=== PATIENT | female | born 1965 | race African-American/Black ===

== ENCOUNTER 2022-08-08 14:16 | Emergency (ER) | payer MEDICAID ==
[~2022-08-08] VITALS: Ht 162.6 cm; Wt 64.0 kg
[~2022-08-08 14:16] MED LIST: CEPH500C2 MT; OMEP40CA20 MT; ONDA4TAB50 MT
[2022-08-08 14:26] VITALS: BP 129/82
[2022-08-08] MEDS ORDERED: TRAMADOL 50MG TABLET PO ONE (14:30)
[2022-08-08] MEDS ORDERED: IBUP-2029 MT (14:58)
== END 2022-08-08 15:21 | disposition home or self-care (01) ==
LOC: ER 14:34
DX: M79.605 Pain in left leg (principal); M79.604 Pain in right leg; G62.9 Polyneuropathy, unspecified; I10 Essential (primary) hypertension; F20.9 Schizophrenia, unspecified
CPT/HCPCS: 99283